=== PATIENT | female | born 1990 | race African-American/Black ===

== ENCOUNTER 2019-03-09 03:04 | Inpatient (IN) | payer OTHER ==
[~2019-03-09] VITALS: Ht 177.8 cm; Wt 145.1 kg
--- NOTE | ~2019-03-09 | HC ---
[facility] [place] [address] CONSULTATION Name: ULICES MELÉNDEZN Room #: 458-[facility] IN M.R.#: [id number] Admission: 03/09/19 Attend Phys: Gurvinder Byers MD Discharge: 03/10/19 Date of : 89 Report #: [id number] THIS REPORT FOR: //name// CC: Miriam Walker [facility] physician/PCP Gurvinder Byers CHIEF COMPLAINT: Low back pain. HISTORY OF PRESENT ILLNESS: This is a 29-year-old obese female admitted with intractable back pain. She has been seen previously by a chiropractor. She began having low back pain, mostly on the left side. She states that she has been having pain off and on. At this time, it was worse than any other time. She was then admitted to the hospital for management. Orthopedics was consulted for their opinion. PAST MEDICAL HISTORY: Benign. PAST SURGICAL HISTORY: Significant for tonsillectomy. SOCIAL HISTORY: Negative. REVIEW OF SYSTEMS: As above. PHYSICAL EXAMINATION: Awake and alert. She is neurovascularly intact distally. Bilateral lower extremities. She has good capillary refill. Motor is intact throughout. She has good pulses. Reflexes are normal. She is tender to palpation in her low back at the L5-S1 region. X-rays and MRI are reviewed noting mild degenerative changes with some mild spinal stenosis as well. IMPRESSION: Low back pain, muscular in nature. PLAN: Options were discussed with the patient. She is a candidate for continued nonsurgical management obviously. She will progress with progressive weightbearing as tolerated and progressed with therapies. I did offer her to look into a possible epidural steroid injection, which she did not wish to investigate. I will see her again in followup as needed. She will continue with progressive therapy and pain management with oral anti-inflammatories. By: [id number] Rudolph Matias MD /nt
[2019-03-09 03:09] VITALS: BP 138/88
[2019-03-09] MEDS ORDERED: CELEXA10 MG PO (03:29)
[2019-03-09] MEDS ORDERED: VALIUM5 MG PO (05:59)
[2019-03-09 07:42] LABS: URINE BILIRUBIN NEGATIVE (Negative); URINE BLOOD 3+ (Negative); URINE COLOR YELLOW; URINE GLUCOSE-RANDOM* NEGATIVE (Negative); URINE KETONES NEGATIVE (Negative); URINE NITRITE-REFLEX NEGATIVE (Negative); URINE PROTEIN (DIPSTICK) NEGATIVE (Negative); URINE SPECIFIC GRAVITY >= 1.030 (1.005-1.035); URINE UROBILINOGEN 0.2 E.U./dl (0.2-1.0)
[2019-03-09 07:45] LABS: URINE CLARITY HAZY; URINE LEUKOCYTES-REFLEX 1+ (Negative)
[2019-03-09 07:56] LABS: BACTERIA-REFLEX 1-9 Few /HPF (None Seen); CASTS None Seen /LPF (None Seen); CRYSTALS None Seen /LPF (None Seen); SQUAMOUS >10 Many /LPF (0-3); URINE RBC 3-10 Few /HPF (0-2); URINE WBC-REFLEX 0-5 Rare /HPF (0-5)
[2019-03-09] MEDS ORDERED: NORCO 5-325 TA1 EAC1 PO (08:30)
[2019-03-09 09:17] LABS: HEMATOCRIT 41.8 % (37.0-47.0); HEMOGLOBIN 14.2 gm/dL (12.0-15.0); MCH 30.5 pg (26.0-34.0); MCV 89.8 fL (80.0-100.0); RBC 4.65 mil/uL (4.20-5.00); RDW 13.3 % (10.5-14.5); WBC 7.8 thou/uL (4.0-11.0)
[2019-03-09 09:21] LABS: CALCIUM 9.2 mg/dL (8.5-10.1); POTASSIUM 4.1 mmol/L (3.5-5.1)
[2019-03-09 09:53] VITALS: BP 142/58
[2019-03-09 10:13] VITALS: BP 147/50
[2019-03-09 11:08] VITALS: BP 139/61
[2019-03-09 19:39] VITALS: BP 121/51
--- NOTE | 2019-03-09 20:38 | NUR ---
Received pt from the ER, pain was in severe pain. Managed with IV pain medications, partial relief was noted. Pt went down for an MRI of the pelvis, spine today, pain better and was able to use the bedise commode late in the after noon vs a bed yost earlier on. POC followed, no other signs or verbalizations of distress have been noted. VS stable.
[2019-03-10 00:04] VITALS: BP 113/47
--- NOTE | 2019-03-10 01:31 | NUR ---
patient aox4 makes needs known.pain controlled this shift. patient is able to get to bedside commode with maximum assist x1. patient encouraged fluids. patient in bed asleep at this time breathing regular and unlaboured.
[2019-03-10 03:20] VITALS: BP 128/45
[2019-03-10 08:05] VITALS: BP 115/51
[2019-03-10] MEDS ORDERED: IBUPROFEN 400400 M2 PO (13:49)
[2019-03-10] MEDS ORDERED: CYCLOBENZAPRINE5 MG PO (13:49)
[2019-03-10] MEDS ORDERED: VOLTAREN GEL 1100 G2 TOP (13:50)
[2019-03-10 14:14] VITALS: BP 128/51
[2019-03-10 14:29] VITALS: BP 128/51
[2019-03-10 14:57] VITALS: BP 107/67
--- NOTE | 2019-03-10 16:47 | NUR ---
Assumed pt care this am, pt is in less pain and is more mobile compared to admission. Pain is managed with medcation, pt expresses relief though partial. Pt is able to use the commode and slowly move from the bed and ambul;ate around the room. Seen by MD and surgeon. DC instructions and prescriptions given. POC followed with no signs or verbalizations of distress have been noted. IV removed. Pt is now dc.
== END 2019-03-10 16:52 | disposition home or self-care (01) | DRG 552 ==
LOC: ER 03:04 → EROBS 09:21 → 4W 09:25 → ENTRNSPT 03-10 15:20 → EDTRNSPTSTS 03-10 15:33 → 4W 03-10 16:52
PROVIDERS: Emergency Medicine; ADMIT Internal Medicine
DX: M54.5 Low back pain (principal); Z68.42 Body mass index [BMI] 45.0-49.9, adult; F32.9 Major depressive disorder, single episode, unspecified; E66.01 Morbid (severe) obesity due to excess calories; Z79.899 Other long term (current) drug therapy
CPT/HCPCS: 10040